=== PATIENT | male | born 1965 | race Hispanic/Latino ===

== ENCOUNTER 2016-06-05 20:54 | Emergency (ER) | payer OTHER ==
[2016-06-05 21:19] VITALS: BP 157/100; PULSE 84; RESP 18; TEMP 98.9; O2SAT 99
[2016-06-05] MEDS ORDERED: Oxycodone/Acetaminophen 5/325 mg Tab PO STA (21:32)
--- NOTE | 2016-06-05 21:45 | ED PDOC ---
HPI: General Adult Time Seen by Provider: 06/05/16 21:21 Chief Complaint (Nursing): Pain, Chronic Chief Complaint (Provider): joint pain History Per: Patient History/Exam Limitations: no limitations Onset/Duration Of Symptoms: Days (x 3 weeks ) Have you had recent travel within the past 21 days to any of the following countries: [place], [place], [place] or [place]?: No Current Symptoms Are (Timing): Still Present Additional Complaint(s): Bam Stephenson is a 51 year old male, with a previous medical history of HIV positive and hypertension, who presents to the ED with complaints of generalized joint pain worsening for the past 6 weeks. Pt reports to having this pain for 1.5 years. 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 Pt states to seeing a director of research last month who informed the patient he may have rheumatoid arthritis and prescribed diclofenac. Pt reports diclofenac provides no relief which prompted ED visit. Pt denies any swelling, trauma or fevers. Pt denies any additional complaints at this time. PMD: Inna Storey MD Past Medical History Reviewed: Historical Data Vital Signs: Last Vital Signs Temp 98.9 F 06/05/16 21:15 Pulse 84 06/05/16 21:15 Resp 18 06/05/16 21:15 BP 157/100 H 06/05/16 21:15 Pulse Ox 99 06/05/16 21:47 - Medical History PMH: HIV, HTN, Kidney Stones, Pancreatitis, Rheumatoid Arthritis - Surgical History Surgical History: Cholecystectomy - Family History Family History: States: Unknown Family Hx, Diabetes - Home Medications Home Medications: Ambulatory Orders Medication Instructions Recorded Darunavir [Prezista] 800 mg PO DAILY 07/18/13 Emtricitabine/Tenofovir Diso 1 tab PO DAILY 07/18/13 [Truvada 200 MG-300 MG] Ondansetron ODT [Zofran ODT] 1 odt PO BID PRN #15 odt 07/18/13 Ritonavir [Norvir] 100 mg PO DAILY 07/18/13 Tramadol Hydrochloride [Tramadol] 50 mg PO PRN PRN 07/18/13 oxyCODONE/Acetaminophen [Percocet 1 tab PO QID PRN #20 tab 07/18/13 5/325 mg Tab] oxyCODONE/Acetaminophen [Percocet 1 tab PO QID PRN #30 tab 07/13/15 5/325 mg Tab] Albuterol HFA [Ventolin HFA 90 2 puff IH [id number] PRN #1 bottle 03/13/16 mcg/actuation (8 g)] Azithromycin [Zithromax] 500 mg PO DAILY #3 tab 03/13/16 oxyCODONE/Acetaminophen [Percocet 1 tab PO Q6 PRN #20 tab 03/13/16 5/325 mg Tab] Tramadol HCl [Ultram] 50 mg PO BID PRN #30 tablet 06/05/16 - Allergies Allergies/Adverse Reactions: Allergies Allergy/AdvReac Type Severity Reaction Status Date / Time efavirenz [From Sustiva] Allergy SHORTNESS Verified 03/13/16 16:39 OF BREATH Review of Systems ROS Statement: Except As Marked, All Systems Reviewed And Found Negative Constitutional: Negative for: Fever Musculoskeletal: Positive for: Other (joint pain ) Physical Exam - Reviewed Nursing Documentation Reviewed: Yes Vital Signs Reviewed: Yes - Physical Exam Appears: Positive for: Well, Non-toxic, No Acute Distress Head Exam: Positive for: ATRAUMATIC, NORMAL INSPECTION, NORMOCEPHALIC Skin: Positive for: Normal Color, Warm, DRY Eye Exam: Positive for: EOMI, Normal appearance, PERRL ENT: Positive for: Normal ENT Inspection Neck: Positive for: Normal, Painless ROM Cardiovascular/Chest: Positive for: Regular Rate, Rhythm Respiratory: Positive for: CNT, Normal Breath Sounds Gastrointestinal/Abdominal: Positive for: Normal Exam, Bowel Sounds, Soft Back: Positive for: Normal Inspection Extremity: Positive for: Normal ROM (in all joints ), Capillary Refill (< 2 seconds ). Negative for: Tenderness, Calf Tenderness, Deformity, Swelling, Other (erythema ) Neurologic/Psych: Positive for: Alert, Oriented - ECG O2 Sat by Pulse Oximetry: 99 (RA) Pulse Ox Interpretation: Normal - Progress ED Course And Treament: Pt. reports pain has improved. Pt. is requesting percocet to be prescribed. Pt. was searched on [facility] and indicate that pt. gets a monthly Rx of Percocet #[address] Robin. Last Rx was on 04/16/16. Pt. was informed of pain policy and was instructed to f/u with Dr. Robin for further evaluation. Medical Decision Making Medical Decision Making: Initial Impression: Arthralgia Initial Plan: * percocet * toradol * reevaluation Scribe Attestation: Documented by Isa Rios, acting as a scribe for Kimani Bonilla PA-C. Provider Scribe Attestation: All medical record entries made by the Scribe were at my direction and personally dictated by me. I have reviewed the chart and agree that the record accurately reflects my personal performance of the history, physical exam, medical decision making, and the department course for this patient. I have also personally directed, reviewed, and agree with the discharge instructions and disposition. 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
== END 2016-06-06 00:05 | disposition home or self-care (01) ==
LOC: H.ER 20:54
DX: M25.50 Pain in unspecified joint (principal); Z21 Asymptomatic human immunodeficiency virus [HIV] infection status; I10 Essential (primary) hypertension; K85.90 Acute pancreatitis without necrosis or infection, unspecified